=== PATIENT | male | born 1985 | race Two or more races ===

== ENCOUNTER 2018-06-19 16:55 | Emergency (ER) | payer SELFPAY ==
[~2018-06-19] VITALS: Ht 167.6 cm; Wt 75.0 kg
[2018-06-19 17:00] VITALS: BP 100/66
== END 2018-06-19 19:01 | disposition left against medical advice (07) ==
LOC: ER 16:55
DX: M79.651 Pain in right thigh (principal); Z53.21 Procedure and treatment not carried out due to patient leaving prior to being seen by health care provider

== ENCOUNTER 2018-06-19 20:16 | Emergency (ER) | payer SELFPAY ==
[2018-06-19] MEDS ORDERED: DIPHENHYDRAMINE 50MG/ML VIAL IM STA (21:46)
[2018-06-19] MEDS ORDERED: SODIUM CHLORIDE 0.9% 1,000 ML IV ONE (21:46)
[2018-06-19] MEDS ORDERED: LORAZEPAM 2MG/ML CPJ IM STA (21:46)
[2018-06-19] MEDS ORDERED: HALOPERIDOL LACTATE 5MG/ML VIAL IM STA (21:46)
[2018-06-19 23:37] LABS: BASOPHILS % 0.7 % (0.0-2.0); EOSINOPHILS % 2.1 % (0.0-5.0); HEMOGLOBIN. 14.9 g/dL (14.0-18.0); LYMPHOCYTES % 32.9 % (20.0-50.0); MEAN CORPUSCULAR HEMOGLOBIN 31.4 pg (28.0-32.0); MEAN CORPUSCULAR VOLUME 92.5 fL (80.0-94.0); MEAN PLATELET VOLUME 6.8 fl (7.4-10.4); MONOCYTES % 8.7 % (2.0-8.0); NEUTROPHILS % 55.6 % (40.0-76.0); PLATELET 358 x1000/uL (130-400); RED BLOOD CELL COUNT 4.76 mill/uL (4.7-6.1); RED CELL DISTRIBUTION WIDTH 13.9 % (11.6-14.6)
[2018-06-19 23:44] LABS: CHLORIDE 109 mEq/L (98-107)
[2018-06-19] MEDS ORDERED: MIDAZOLAM HCL 2 MG/2 ML VIAL IM ONE (23:45)
[2018-06-19] MEDS ORDERED: FOLIC ACID 1 MG, THIAMINE HCL 100 MG, MVI, ADULT NO.1 10 ML in DEXTROSE 5% WATER 1,000 ML IV ONE ×4 (23:45)
[2018-06-19 23:51] LABS: ETHANOL BLOOD < 10 mg/dL
[2018-06-19 23:54] LABS: CREATINE KINASE 252 IU/L (39-308)
[2018-06-20 01:00] LABS: CLARITY URINE CLEAR (CLEAR); COLOR URINE YELLOW (YELLOW); KETONES URINE TRACE (NEGATIVE); LEUKOCYTE ESTERASE URINE NEGATIVE (NEGATIVE); NITRITE URINE NEGATIVE (NEGATIVE); OCCULT BLOOD URINE NEGATIVE (NEGATIVE); PH URINE 5.5 (4.5-8.0); PROTEIN URINE NEGATIVE (NEGATIVE)
[2018-06-20 01:12] LABS: *AMPHETAMINES SCREEN URINE PRESUMTIVE POSITIVE (NEGATIVE); *BARBITURATES SCREEN URINE NEGATIVE (NEGATIVE); *BENZODIAZEPINES SCREEN URINE NEGATIVE (NEGATIVE); CANNABINOID URINE SCREEN NEGATIVE (NEGATIVE); METHADONE URINE SCREEN NEGATIVE (NEGATIVE); PHENCYCLIDINE URINE SCREEN NEGATIVE (NEGATIVE)
[2018-06-20 01:14] LABS: OPIATES URINE SCREEN NEGATIVE (NEGATIVE)
[2018-06-20 01:15] LABS: *COCAINE SCREEN URINE NEGATIVE (NEGATIVE)
[2018-06-20] MEDS ORDERED: THIAMINE HCL 100 MG/1 ML 2ML VIAL ONE (09:15)
[2018-06-20] MEDS ORDERED: DEXTROSE 50% WATER 50ML SYRINGE IV ONE (09:15)
[2018-06-20 12:53] VITALS: BP 115/63
== END 2018-06-20 12:55 | disposition home or self-care (01) ==
LOC: ER 21:52 → EDBD 21:52 → MERGE 21:52 → ER 06-20 12:55
DX: F19.129 Other psychoactive substance abuse with intoxication, unspecified (principal); R41.82 Altered mental status, unspecified; T50.995A Adverse effect of other drugs, medicaments and biological substances, initial encounter; E16.2 Hypoglycemia, unspecified; Y92.89 Other specified places as the place of occurrence of the external cause
CPT/HCPCS: 36415; 70450; 80053; 80305; 80307; 80320; 80329; 81003; 82550; 82962; 83690; 83735; 85025; 96361; 96365; 96366; 96372; 96375; 99284; J1200; J1630; J2060; J2250; J3411; J3490; J7030; J7070; G0480

== ENCOUNTER 2018-06-20 17:11 | Emergency (ER) | payer SELFPAY ==
[~2018-06-20] VITALS: Ht 170.2 cm; Wt 62.0 kg
[2018-06-20 17:18] VITALS: BP 120/56
== END 2018-06-20 19:57 | disposition left against medical advice (07) ==
LOC: ER 17:11
DX: M79.604 Pain in right leg (principal); Z53.21 Procedure and treatment not carried out due to patient leaving prior to being seen by health care provider

== ENCOUNTER 2018-06-20 20:13 | Emergency (ER) | payer SELFPAY ==
[~2018-06-20] VITALS: Ht 172.7 cm; Wt 64.0 kg
[2018-06-20] MEDS ORDERED: KETOROLAC 30MG/ML VIAL IM ONE (21:00)
[2018-06-20 21:49] VITALS: BP 110/69
== END 2018-06-20 21:52 | disposition home or self-care (01) ==
LOC: ER 20:20
DX: G89.29 Other chronic pain (principal); M79.604 Pain in right leg; F15.10 Other stimulant abuse, uncomplicated; F17.200 Nicotine dependence, unspecified, uncomplicated; F20.9 Schizophrenia, unspecified; Z98.890 Other specified postprocedural states
CPT/HCPCS: 96372; 99283; J1885

== ENCOUNTER 2021-02-23 20:42 | Emergency (ER) | payer MEDICAID, OTHER ==
[~2021-02-23] VITALS: Ht 172.7 cm; Wt 73.0 kg
[2021-02-23 20:45] VITALS: BP 121/98
== END 2021-02-24 03:36 | disposition left against medical advice (07) ==
LOC: ER 20:42
DX: Z53.21 Procedure and treatment not carried out due to patient leaving prior to being seen by health care provider (principal); F20.9 Schizophrenia, unspecified

== ENCOUNTER 2022-04-12 22:24 | Emergency (ER) | payer MEDICAID ==
[~2022-04-12] VITALS: Ht 172.7 cm; Wt 64.0 kg
[2022-04-12 22:48] VITALS: BP 122/79
== END 2022-04-13 02:47 | disposition left against medical advice (07) ==
LOC: ER 22:24
DX: Z53.21 Procedure and treatment not carried out due to patient leaving prior to being seen by health care provider (principal); F20.9 Schizophrenia, unspecified; F31.9 Bipolar disorder, unspecified; Z98.890 Other specified postprocedural states
CPT/HCPCS: 99281